=== PATIENT | female | born 1995 | race Caucasian/White ===

== ENCOUNTER 2020-02-01 17:29 | Day surgery (SDC) | payer OTHER ==
[~2020-02-01] VITALS: Ht 175.3 cm; Wt 65.8 kg
[2020-02-01] MEDS ORDERED: ZONEGRAN50 MG PO (17:32)
[2020-02-01] MEDS ORDERED: LAMICTAL XR200 MG PO (17:32)
--- NOTE | 2020-02-01 17:46 | NUR ---
PT ARRIVED FROM [facility] VIA EMS, SHOWERED IV TO LEFT FA BY [facility]. NS RASHID, CONSENT SIGNED ON CHART. ASSESSMENTS COMPLETE. MED REC COMPLETE. PT IS A/O X3 HAVING LLQ PAIN 6/10. LUNGS CLEAR, BOWEL SOUNDS PRESENT. PULSES RADIAL AND PEDAL +2. PT TO SURGERY PER BED AT THIS TIME. HCG URINE SENT.
--- NOTE | 2020-02-01 18:56 | NUR ---
REPORT TO SHILOH SALGADO.
[2020-02-01 19:02] VITALS: BP 125/72; PULSE 87; TEMP 98.4
[2020-02-01 20:10] VITALS: BP 111/67; PULSE 64; TEMP 98.4
--- NOTE | 2020-02-01 20:10 | NUR ---
To room 343 via bed from PACU. Assessment complete. A&Ox3-drowsy. Denies pain/nausea/shortness of breath. Discharge criteria discussed-Tolerating PO, voiding and stable VS. Verbalizes understanding. Up to bathroom with stand by assist at this time to void. Light pink urine-300mls. Call light in reach. Will monitor.
[2020-02-01 20:25] VITALS: BP 123/78; PULSE 71
[2020-02-01 20:40] VITALS: BP 118/69; PULSE 76
--- NOTE | 2020-02-01 21:00 | NUR ---
Discharge criteria met. Voiding without difficulty/tolerating PO/VS stable. Discharge instructions given both verbal and handwritten. Discussed s/s of infection/home meds. Denies questions or concerns. Escorted off floor via wheelchair by PCT with no s/s of distress noted.
[2020-02-01 21:05] VITALS: BP 121/67; PULSE 71; TEMP 98
== END 2020-02-01 21:20 | disposition home or self-care (01) ==
LOC: SDCO 17:29 → SURG 17:31 → SDCO 17:31 → SURG 21:20
DX: N20.1 Calculus of ureter (principal); Z88.8 Allergy status to other drugs, medicaments and biological substances; Z20.828 Contact with and (suspected) exposure to other viral communicable diseases
CPT/HCPCS: OP; C1769; C1894; J0690; J1100; J1885; J2250; J2405; J2704; J3010; J7030; Q9967

== ENCOUNTER 2021-04-10 10:36 | Emergency (ER) | payer OTHER ==
[~2021-04-10] VITALS: Ht 177.8 cm; Wt 69.1 kg
[~2021-04-10 10:36] MED LIST: LAMICTAL XR200 MG PO; ZONEGRAN50 MG PO
[2021-04-10 10:39] VITALS: BP 126/79; TEMP 98
[2021-04-10 11:14] LABS: COLLECTION METHOD CATHETER
[2021-04-10 11:18] LABS: ALBUMIN 5.1 gm/dL (3.5-5.0); BILIRUBIN,TOTAL 0.5 mg/dL (0.0-1.0); CALCIUM 9.8 mg/dL (8.4-10.2); CREATININE, serum 0.78 (0.52-1.25); TOTAL PROTEIN 8.6 gm/dL (6.4-8.2)
[2021-04-10 11:19] LABS: BASO % 0.5 % (0.0-2.0); EOS # 0.1 (0.0-0.7); EOS % 0.8 % (0-4.0); GRAN # 4.2 (1.4-6.5); GRAN % 64.2 % (42.2-75.2); HEMATOCRIT 41.6 % (37.0-47.0); HEMOGLOBIN 14.3 g/dl (12.5-16.0); LYMPH # 1.8 (1.2-3.4); LYMPH % 27.7 % (20.0-51.0); MEAN CELL VOLUME 92 fl (80.0-100.0); MEAN CORPUSCULAR HEMOGLOBIN 32 pg (27.0-31.0); MEAN CORPUSCULAR HGB CONC 34 g/dl (33.0-37.0); MEAN PLATELET VOLUME 9.3 fl (7.4-10.4); MONO # 0.4 (0.1-0.6); MONO % 6.5 % (1.7-9.3); PLATELET COUNT 306 K/mm3 (130-400); RED BLOOD COUNT 4.53 M/mm3 (4.10-5.30); REDCELL DISTRIBUTION WIDTH-CV 11.9 % (11.5-14.5)
[2021-04-10 11:31] LABS: PH 6 (5-8); SQUAMOUS EPITHELIAL 0-2 /hpf; URINE APPEARANCE Hazy; URINE BACTERIA Rare /hpf; URINE BILIRUBIN Negative (NEGATIVE); URINE BLOOD 3+ (NEGATIVE); URINE COLOR Yellow; URINE GLUCOSE Negative (NEGATIVE); URINE KETONE Negative (NEGATIVE); URINE LEUKOCYTE ESTERASE Negative (NEGATIVE); URINE NITRATE Negative (NEGATIVE); URINE PROTEIN(semi-quant) 1+ (NEGATIVE); URINE UROBILINOGEN Negative (NEGATIVE)
[2021-04-10 16:16] VITALS: PULSE 72
== END 2021-04-10 16:16 | disposition home or self-care (01) ==
LOC: COL.ER 10:36
PROVIDERS: Nurse Practitioner Family
DX: N92.6 Irregular menstruation, unspecified (principal); R11.2 Nausea with vomiting, unspecified; G40.909 Epilepsy, unspecified, not intractable, without status epilepticus; Z87.442 Personal history of urinary calculi; Z79.899 Other long term (current) drug therapy
CPT/HCPCS: J1885; J2405; J7030